=== PATIENT | male | born 1960 | race African-American/Black ===

== ENCOUNTER 2017-07-12 10:17 | Emergency (ER) | payer OTHER ==
[~2017-07-12] VITALS: Ht 185.4 cm; Wt 119.0 kg
[2017-07-12] MEDS ORDERED: SODIUM CHLORIDE 0.9% 1,000 ML IV ONE (10:58)
[2017-07-12] MEDS ORDERED: KETOROLAC 15MG/ML VIAL IV ONE (12:00)
[2017-07-12] MEDS ORDERED: ONDANSETRON HCL 4MG/2ML VIAL IV ONE (12:00)
[2017-07-12] MEDS ORDERED: MORPHINE SULFATE 4 MG/ML CPJ (NOT FOR IM USE) IV ONE (12:00)
[2017-07-12 12:10] VITALS: BP 155/102
[2017-07-12 12:23] LABS: HEMATOCRIT. 43.5 % (42.0-52.0); HEMOGLOBIN. 14.3 g/dL (14.0-18.0); MEAN CORPUSCULAR HEMOGLOBIN 29.6 pg (28.0-32.0); MEAN CORPUSCULAR VOLUME 90.3 fL (80.0-94.0); MEAN PLATELET VOLUME 8.1 fl (7.4-10.4); PLATELET 241 x1000/uL (130-400); RED BLOOD CELL COUNT 4.82 mill/uL (4.7-6.1); RED CELL DISTRIBUTION WIDTH 14.1 % (11.6-14.6)
[2017-07-12 12:26] LABS: INR 1.1; PROTHROMBIN TIME 11.3 sec (9.4-11.6)
[2017-07-12 12:36] LABS: CARBON DIOXIDE 26 mEq/L (21-32); CHLORIDE 104 mEq/L (98-107); TROPONIN I 0.02 ng/mL (0.00-0.04)
[2017-07-12 12:47] LABS: PLATELET ESTIMATE NORMAL
== END 2017-07-12 11:42 | disposition home or self-care (01) ==
LOC: ER 10:17
DX: M19.90 Unspecified osteoarthritis, unspecified site (principal); M25.521 Pain in right elbow; R55 Syncope and collapse; R51 Headache; I10 Essential (primary) hypertension; M10.9 Gout, unspecified
CPT/HCPCS: 36415; 70450; 73080; 80053; 83880; 84484; 84550; 85025; 85610; 85730; 93005; 96361; 96374; 96375; 99285; J1885; J2270; J2405; J7030; Z7610

== ENCOUNTER 2018-11-26 19:11 | Emergency (ER) | payer OTHER ==
[~2018-11-26] VITALS: Ht 190.5 cm; Wt 116.0 kg
[2018-11-26] MEDS ORDERED: MORPHINE SULFATE 10 MG/ML CPJ IM ONE (21:15)
[2018-11-26] MEDS ORDERED: KETOROLAC 30MG/ML VIAL IM ONE (21:15)
[2018-11-26 21:38] VITALS: BP 174/88
== END 2018-11-26 21:40 | disposition home or self-care (01) ==
LOC: ER 21:14
DX: M10.021 Idiopathic gout, right elbow (principal)
CPT/HCPCS: 96372; 99283; J1885; J2270

== ENCOUNTER 2020-08-25 21:18 | Emergency (ER) | payer OTHER ==
[~2020-08-25] VITALS: Ht 190.5 cm; Wt 114.0 kg
[2020-08-25] MEDS ORDERED: KETOROLAC 60MG/2ML VIAL IM ONE (23:00)
[2020-08-25] MEDS ORDERED: MORPHINE SULFATE 10 MG/ML CPJ IM ONE (23:00)
[2020-08-25] MEDS ORDERED: COLC0.6C3 MT (23:30)
[2020-08-25] MEDS ORDERED: INDO50CA98 MT ×2 (23:32)
[2020-08-26 00:07] VITALS: BP 153/100
== END 2020-08-26 00:22 | disposition home or self-care (01) ==
LOC: ER 21:18
DX: M10.9 Gout, unspecified (principal); I10 Essential (primary) hypertension
CPT/HCPCS: 96372; 99284; J1885; J2270